=== PATIENT | female | born 1950 | race Caucasian/White ===

== ENCOUNTER 2016-08-02 12:10 | Outpatient (CLI) ==
[2014-01-27 13:03] VITALS: BMI 32.1
--- NOTE | 2016-08-02 12:56 | DI ---
EXAM: Chest two view, frontal and lateral views. HISTORY: Cough, wheezing. COMPARISON: 10/31/2013. FINDINGS: The heart size is normal. There is no pulmonary vascular congestion. The lungs are declan r. No pleural effusion or pneumothorax is seen. No acute osseous abnormality identified. Since prior study, there has been no significant interval change. IMPRESSION: No acute cardiopulmonary process.
== END 2016-08-02 12:11 | disposition home or self-care (01) ==
LOC: RAD 12:10
PROVIDERS: ATTEND Family Medicine
DX: J41.0 Simple chronic bronchitis (principal)

== ENCOUNTER 2017-03-22 14:07 | Outpatient (CLI) ==
[2014-01-27 13:03] VITALS: BMI 32.1
--- NOTE | 2017-03-24 04:12 | MRI ---
MRI of the lumbar spine HISTORY: Acute low back pain without sciatica. COMPARISON: 07/16/2013 PROCEDURE: Multiplanar, multisequence MRI protocol including sagittal T1-weighted, sagittal T2-weigh joyce, sagittal inversion recovery, coronal T2-weighted, axial T1-weighted and axial T2-weighted sequen avila. FINDINGS: There are five non-rib bearing lumbar vertebra. Vertebral alignment demonstrate straighten ing of normal lordosis. Vertebral body height is well maintained. Marrow signal is heterogeneous co mpatible with fatty infiltration associated with age. Note is again made of intraosseous hemangiomas in T12 and L1. The intervertebral discs demonstrate evidence of desiccation at L1-2 and L2-3 with a dditional moderate disc space narrowing at L1-2 and L2-3 and mild disc space narrowing at L3-4, L4-5 and L5-S1 as observed previously. There is evidence of large anterolateral osteophytes at L1-2 and s mall to moderate anterolateral osteophytes at L2-3 and small anterolateral osteophytes at L3-4. Ther e are chronic small Schmorl's nodes from T10-L4. The conus medullaris appears normal in position and configuration and signal. The caliber of the spinal canal is intrinsically within normal limits. N ote is made of prominent epidural fat narrowing the thecal sac at the L5-S1 level and in the sacral c anal. The prevertebral and paraspinous soft tissues appear generally stable when compared to the prio r examination. Segmental analysis: T12-L1: There is no significant disc bulge at this level. The spinal canal is not significantly narr owed. The subarticular spaces and lateral recesses are not significantly narrowed. The neural foramin a are not stenosed. The conus terminates just below this level. L1-L2: There is a small disc bulge at this level. There is modest triangulation of the canal without significant associated stenosis. The subarticular spaces and lateral recesses are not significantly narrowed. There is mild bilateral foraminal stenosis due to facet arthropathy and disc intrusion. L2-L3: There is a modest broad based disc bulge at this level. The combination of disc, facet hypert rophy thickening of the ligamenta flava and dorsal epidural lipomatosis reduces the AP diameter of th e thecal sac to about 7.5 mm. The subarticular spaces and lateral recesses are not significantly narr owed. There is mild right and moderate left foraminal stenosis due to facet arthropathy and disc intr usion. L3-L4: There is a modest broad based disc bulge impressing the ventral thecal sac at this level. The re is modest triangulation of the canal with reduction of the AP diameter of the thecal sac to about 9.5 mm by a combination of disc, facet hypertrophy, thickening of the ligamenta flava and dorsal epid ural lipomatosis. The subarticular spaces and lateral recesses are not significantly narrowed. There is mild bilateral foraminal stenosis due to facet arthropathy and disc intrusion. L4-L5: There is a modest broad based disc bulge impressing the ventral thecal sac at this level. The re is modest narrowing of the thecal sac to about 9.5 mm by a combination of disc, facet hypertrophy and thickening ligamenta flava. The subarticular spaces and lateral recesses are not significantly na rrowed. There is minimal bilateral foraminal stenosis due to facet arthropathy and disc intrusion. L5-S1: There is a minimal posterior disc bulge with midline annular fissure and protrusion at this le heriberto. There is no impression of the thecal sac. The thecal sac is narrowed by abundant epidural fat. The subarticular spaces and lateral recesses are not significantly narrowed. The neural foramina are not stenosed. IMPRESSION: 1. The current examination demonstrates largely stable findings when compared to the patient's prior examination. 2. There is straightening of normal lordosis. Vertebral body height is well maintained. Marrow signa l is heterogeneous. Note is made of intraosseous hemangiomas in T12 and L1. There is evidence of mo dest multilevel degenerative disc disease described in detail in the report. 3. There is triangulation of the canal without stenosis at L1-2, mild stenosis at L2-3, and triangula tion of the canal with mild stenosis at L4-5 consistent with prior exam. The thecal sac is narrowed by spinal lipomatosis at L5-S1. 4. There is mild bilateral foraminal stenosis at L1-2, mild right and moderate left foraminal stenosi s at L2-3, mild bilateral foraminal stenosis at L3-4 and minimal bilateral foraminal stenosis at L4-5 , details provided in the report at the individual levels.
== END 2017-03-22 14:08 | disposition home or self-care (01) ==
LOC: RAD 14:07
PROVIDERS: ATTEND Family Medicine
DX: M54.5 Low back pain (principal); Z85.9 Personal history of malignant neoplasm, unspecified

== ENCOUNTER 2017-11-02 09:04 | Outpatient (CLI) ==
[2014-01-27 13:03] VITALS: BMI 32.1
== END 2017-11-02 09:05 | disposition home or self-care (01) ==
LOC: LAB 09:04
PROVIDERS: ATTEND Family Medicine
DX: R31.9 Hematuria, unspecified (principal)
CPT/HCPCS: 81001; 87086; 87186

== ENCOUNTER 2018-07-14 19:17 | Emergency (ER) ==
[2018-07-14 19:21] VITALS: BP 156/67; TEMP 98.3; BMI 31.1
--- NOTE | 2018-07-14 20:07 | DI ---
EXAM: Three views of the right elbow HISTORY: Fall with pain. COMPARISON: None FINDINGS: There is no cortical irregularity or displaced fracture. The radial head and the capitellu m articulate normally. There is no abnormal periosteal reaction. There are no displaced fat pads. There is soft tissue swelling overlying the olecranon and dorsal aspect of the proximal forearm. IMPRESSION: Soft tissue swelling of the right elbow with no displaced fracture.
--- NOTE | 2018-07-14 20:23 | ED.PDOC ---
General ED Provider: Dr. URI STEELE-ER Chief Complaint: Fall Stated Complaint: my elbow is swollen Time Seen by Physician: 19:20 Mode of Arrival: Walk-In Information Source: Patient Exam Limitations: No limitations Primary Care Provider: URI STEELE Nursing and Triage Documentation Reviewed and Agree: Yes Does patient meet sepsis criteria?: No System Inflammatory Response Syndrome: Not Applicable Sepsis Protocol: For patient's 13 years and over: Temp is 96.8 and below OR 101 and greater Pulse >90 BPM Resp >20/minute Acutely Altered Mental Status Are patient's symptoms suggestive of a new infection, such as: -Pneumonia -Skin, Soft Tissue -Endocarditis -UTI -Bone, Joint Infection -Implantable Device -Acute Abdominal Infection -Wound Infection -Meningitis -Blood Stream Catheter Infection -Unknown Musculoskeletal Complaint Exam - Elbow Pain Complaint/Exam Mechanism of Injury: Reports: Trauma Symptoms Are: Still present Onset of Pain: Reports: Immediate Initial Severity: Mild Current Severity: Mild Location: Reports: Discrete Character: Reports: Dull, Aching Aggravating: Reports: Movement, Twisting, Pulling Associated Signs and Symptoms: Reports: Swelling, Redness Elbow Findings: Present: Swelling, Erythema, Warmth Limited Range of Motion: Present: Flexion, Extension Differential Diagnoses: Cellulitis, Bursitis Review of Systems - Review Of Systems Constitutional: Reports: No symptoms Eyes: Reports: No symptoms Ears, Nose, Mouth, Throat: Reports: No symptoms Respiratory: Reports: No symptoms Cardiac: Reports: No symptoms GI: Reports: No symptoms : Reports: No symptoms Musculoskeletal: Reports: Joint pain, Joint swelling Skin: Reports: No symptoms Neurological: Reports: No symptoms Endocrine: Reports: No symptoms Hematologic/Lymphatic: Reports: No symptoms All Other Systems: Reviewed and Negative Past Medical History - Past Medical History Previously Healthy: No Endocrine: Reports: Unknown Cardiovascular: Reports: Unknown Respiratory: Reports: Unknown Hematological: Reports: Unknown Gastrointestinal: Reports: Unknown Genitourinary: Reports: Unknown Neuro/Psych: Reports: Unknown Musculoskeletal: Reports: Unknown Cancer: Reports: Unknown Last Menstrual Period: N/A - Surgical History General Surgical History: Reports: Unknown - Family History Family History: Reports: Unknown - Social History Smoking Status: Heavy tobacco smoker, Current every day smoker Hx Substance Use: No Alcohol Screening: None Physical Exam - Physical Exam Appearance: Well-appearing, No pain distress, Well-nourished Eyes: KATIE, EOMI, Conjunctiva clear ENT: Ears normal, Nose normal, Oropharynx normal Neck: Supple Respiratory: Airway patent, Breath sounds clear, Breath sounds equal, Respirations nonlabored Cardiovascular: RRR, Pulses normal, No rub, No murmur GI/: Soft, Nontender, No masses, Bowel sounds normal, No Organomegaly Musculoskeletal: Normal strength, ROM intact, No edema, No calf tenderness Skin: Warm, Dry, Normal color Neurological: Sensation intact, Motor intact, Reflexes intact, Cranial nerves intact, Alert, Oriented Psychiatric: Affect appropriate, Mood appropriate Interpretation - Radiology Interpretation Radiology Interpretation By: Radiologist Radiology Results: Negative Critical Care Note - Critical Care Note Total Time (mins): 0 Course - Course Orders, Labs, Meds: Orders Category Date Time Status ELBOW, RIGHT MIN 3 VIEWS Stat RADS 07/14/18 19:20 Completed Vital Signs: Temp Pulse Resp BP Pulse Ox 07/14/18 19:18 98.3 F 93 H 18 156/67 H 95 Departure - Departure Time of Disposition: 20:23 Disposition: HOME SELF-CARE Discharge Problem: Olecranon bursitis Qualifiers: Laterality: right Qualified Code(s): M70.21 - Olecranon bursitis, right elbow Instructions: Elbow Bursitis (ED) Condition: Good Pt referred to PMD for follow-up: Yes IPMP verified?: No Additional Instructions: clindamycin 300mg qid x 7days--heat ---recheck this week if worsens Allergies/Adverse Reactions: Allergies Penicillins Adverse Reaction (Verified 07/14/18 19:20) Home Medications: Ambulatory Orders Esomeprazole Magnesium [Nexium] 40 tab PO DAILY 10/31/13 Levothyroxine Sodium [Synthroid] 100 mcg PO DAILY 10/31/13 Disposition Discussed With: Patient, Family
== END 2018-07-14 20:29 | disposition home or self-care (01) ==
LOC: ED 19:17
DX: M70.21 Olecranon bursitis, right elbow (principal); W19.XXXA Unspecified fall, initial encounter; F17.210 Nicotine dependence, cigarettes, uncomplicated
CPT/HCPCS: 99283

== ENCOUNTER 2021-11-19 22:33 | Observation (INO) ==
[2021-11-19] MEDS ORDERED: SODIUM CHLORIDE 1,000 ML IV STA (22:53)
--- NOTE | 2021-11-19 23:00 | ED.PDOC ---
General ED Provider: Dr. SUNNY CLEARY Chief Complaint: Shortness of Air Stated Complaint: Patient is a 71 year old female Smoker of 2 ppd for many years who is brought by Daughter with complaints of shortness of breath and slurred speech that started 30 min prior to arrival. Time Seen by Provider: 11/19/21 22:40 Mode of Arrival: Walk-In Information Source: Patient and Family Primary Care Provider: URI STEELE Nursing and Triage Documentation Reviewed and Agree: Yes Does patient meet sepsis criteria?: No System Inflammatory Response Syndrome: Not Applicable Sepsis Protocol: For patient's 13 years and over: Temp is 96.8 and below OR 101 and greater Pulse >90 BPM Resp >20/minute Acutely Altered Mental Status Are patient's symptoms suggestive of a new infection, such as: -Pneumonia -Skin, Soft Tissue -Endocarditis -UTI -Bone, Joint Infection -Implantable Device -Acute Abdominal Infection -Wound Infection -Meningitis -Blood Stream Catheter Infection -Unknown Review of Systems Review Of Systems Constitutional: Reports No symptoms Eyes: Reports No symptoms Ears, Nose, Mouth, Throat: Reports No symptoms Respiratory: Reports Short of air Cardiac: Reports No symptoms GI: Reports No symptoms : Reports No symptoms Musculoskeletal: Reports No symptoms Skin: Reports No symptoms Neurological: Reports Anxiety, Headache and Other (Slurring of some words. ); Denies Numbness, Tingling or Weakness All Other Systems: Reviewed and Negative [facility] Medical History (Updated 11/20/21 @ 06:50 by SUNNY CLEARY MD) Bladder cancer Chronic GERD Hypothyroid Family History (Updated 11/20/21 @ 00:49 by GABBY MARIO, HILDA) Mother Diabetes FATHER Heart abnormality SISTER Cancer BROTHER Cancer Social History Smoking and tobacco status: Current every day smoker Surgical History History of urostomy Female Reproductive History Menstrual Hx Hysterectomy: Yes Physical Exam Physical Exam Appearance: Reports Ill-appearing Ill-appearing: Mild Pain Distress: None Eyes: Reports KATIE, EOMI and Conjunctiva clear ENT: Reports Nose normal and Oropharynx normal Neck: Supple (no Carotid Bruits ) Respiratory: Reports Breath sounds diminished Cardiovascular: Reports RRR, Pulses normal and No rub GI/: Reports Soft, Nontender, No masses and Other (Urostomy on the right mid quadrant, stoma appears healthy.) Musculoskeletal: Reports Normal strength Skin: Reports Warm and Dry Neurological: Reports Motor intact Psychiatric: Reports Anxious Interpretation Radiology Interpretation Radiology Interpretation By: Radiologist Radiology Results: Negative Exam Interpreted: CT Scan Automation Machine Builder Rate: Panda Rhythm: Sinus Ectopy: None EKG Interpretation Time of EKG #1: 22:45 Rate: Panda Rhythm: Sinus Ectopy: None [place]: NL ST Segment: Normal 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 Re-Evaluation Re-Evaluation Time of Re-Evaluation: 00:18 Status: Improved (Slurring of speech resolved. ) Vital Signs Stable: Yes Pain Level: Headache gone Physician Notification Case Discussed Physician Notified: Dr Payne Time of Notification: 00:10 (Ok to admit to hospitalist) Critical Care Note Critical Care Note Total Critical Care Time (mins): 0 Course Course Hematology/Chemistry: 11/20/21 05:13 11/20/21 05:13 Orders, Labs, Meds: Lab Review 11/19/21 11/19/21 11/19/21 23:05 23:10 23:10 WBC 7.53 RBC 4.02 L Hgb 11.5 L Hct 36.0 L MCV 89.6 MCH 28.6 MCHC 31.9 RDW Coeff of Drew 14.2 Plt Count 285 Immature Gran % (Auto) 0.3 Neut % (Auto) 49.7 Lymph % (Auto) 35.2 [place] % (Auto) 9.7 Eos % (Auto) 4.0 Baso % (Auto) 1.1 Neut # (Auto) 3.8 Lymph # (Auto) 2.7 [place] # (Auto) 0.7 Eos # (Auto) 0.3 Baso # (Auto) 0.1 Immature Gran # (Auto) 0.0 PT 9.1 L INR 0.87 APTT 30.5 Sodium Potassium Chloride Carbon Dioxide Anion Gap BUN Creatinine Estimated GFR (MDRD) BUN/Creatinine Ratio Glucose Calcium Total Bilirubin AST ALT Alkaline Phosphatase Total Protein Albumin Globulin Albumin/Globulin Ratio Urine Color Yellow Urine Clarity Clear Urine pH 7.0 Ur Specific [place] 1.015 Urine Protein 1+ H Urine Glucose (UA) Negative Urine Ketones Negative Urine Blood 1+ H Urine Nitrite Positive H Urine Bilirubin Negative Urine Urobilinogen 0.2 Ur Leukocyte Esterase 2+ H Urine Microscopic RBC 2-5 Urine Microscopic WBC 10-20 Ur Squamous Epith Cells 0-2 Amorphous Sediment 1+ Urine Bacteria 3+ SARS CoV-2 RNA Rapid DORINA 11/19/21 11/19/21 23:10 Unknown WBC RBC Hgb Hct MCV MCH MCHC RDW Coeff of Drew Plt Count Immature Gran % (Auto) Neut % (Auto) Lymph % (Auto) [place] % (Auto) Eos % (Auto) Baso % (Auto) Neut # (Auto) Lymph # (Auto) [place] # (Auto) Eos # (Auto) Baso # (Auto) Immature Gran # (Auto) PT INR APTT Sodium 138.9 Potassium 3.93 Chloride 107.5 H Carbon Dioxide 24.3 Anion Gap 11.03 BUN 18.1 H Creatinine 1.90 H Estimated GFR (MDRD) 26.00 BUN/Creatinine Ratio 9.52 Glucose 109.7 H Calcium 8.76 Total Bilirubin 0.18 L AST 19.9 ALT 10.0 Alkaline Phosphatase 76.5 Total Protein 7.09 Albumin 3.72 Globulin 3.37 Albumin/Globulin Ratio 1.10 Urine Color Urine Clarity Urine pH Ur Specific [place] Urine Protein Urine Glucose (UA) Urine Ketones Urine Blood Urine Nitrite Urine Bilirubin Urine Urobilinogen Ur Leukocyte Esterase Urine Microscopic RBC Urine Microscopic WBC Ur Squamous Epith Cells Amorphous Sediment Urine Bacteria SARS CoV-2 RNA Rapid DORINA Negative Orders Category Date Time Status ADMIT PATIENT INPATIENT .TO [facility] (MONITORED BED) ADMISSION 11/20/21 00:06 Active ECHOCARDIOGRAM 2D-M MODE Routine CARDIO 11/20/21 00:06 Ordered EKG-(ED ONLY) Stat CARDIO 11/19/21 22:53 Completed ACTIVITY .Early Mobilization for VTE Prevention CARE 11/20/21 00:07 Active INTAKE & OUTPUT Q8HR CARE 11/20/21 00:06 Active TELEMETRY MONITORING TELE CARE 11/20/21 00:06 Active VITAL SIGNS Q4HR CARE 11/20/21 00:07 Active REGULAR DIET DIETARY 11/20/21 Breakfast Ordered ED ACCUCHECK ASSESSMENT .ONCE EMERGENCY 11/19/21 22:53 Active ED IV/MEDIPORT/POWERPORT .ONCE EMERGENCY 11/19/21 22:53 Active CBC W/ AUTO DIFF DAILY@0600 LAB 11/20/21 05:13 Completed CBC W/ AUTO DIFF DAILY@0600 LAB 11/21/21 06:00 Ordered CBC W/ AUTO DIFF Stat LAB 11/19/21 23:10 Completed COMPREHENSIVE METABOLIC PANEL DAILY@0600 LAB 11/20/21 05:13 Completed COMPREHENSIVE METABOLIC PANEL DAILY@0600 LAB 11/21/21 06:00 Ordered COMPREHENSIVE METABOLIC PANEL Stat LAB 11/19/21 23:10 Completed PARTIAL THROMBOPLASTIN TIME Stat LAB 11/19/21 23:10 Completed PT WITH INR Stat LAB 11/19/21 23:10 Completed SARS COV-2 RNA RAPID DORINA Stat LAB 11/19/21 Completed UA [URINALYSIS C & S IF INDICATED] Stat LAB 11/19/21 23:05 Completed URINE CULTURE Stat LAB 11/19/21 23:05 Received 0.9 % Sodium Chloride [Saline Flush] MEDS 11/19/21 22:53 Active 1 syr IVF PRN PRN Acetaminophen [Tylenol] MEDS 11/20/21 00:06 Active 650 mg PO Q4H PRN Ceftriaxone/D5w 1 gm Premix [Rocephin 1 gm/50 ml D5w] MEDS 11/20/21 21:00 Active 1 gm in 50 ml IV BEDTIME Ceftriaxone/D5w 1 gm Premix [Rocephin 1 gm/50 ml D5w] MEDS 11/19/21 23:47 Discontinued 1 gm in 50 ml IV ONCE Enoxaparin Sodium [Lovenox] MEDS 11/20/21 09:00 Active 30 mg SUBCUT DAILY Morphine Sulfate [Morphine 2 mg/ml Syringe] MEDS 11/19/21 23:20 Discontinued 2 mg IVP ONCE ONE Morphine Sulfate [Morphine 2 mg/ml Syringe] MEDS 11/20/21 00:06 Active 2 mg IVP Q4H PRN Nicotine 21 mg [Nicoderm 21 mg] MEDS 11/20/21 09:00 Active 1 patch TD DAILY Ondansetron HCl/Pf [Zofran 4 mg/2 ml] MEDS 11/19/21 23:20 Discontinued 4 mg IVP ONCE STA Ondansetron HCl/Pf [Zofran 4 mg/2 ml] MEDS 11/20/21 00:06 Active 4 mg IVP Q6H PRN Oxycodone-Acetaminophen 5-325 [Percocet 5-325] MEDS 11/20/21 00:06 Active 1 tab PO Q6H PRN Sodium Chloride 0.9% [Sodium Chloride] 1,000 ml MEDS 11/20/21 00:30 Active IV 125 mls/hr Sodium Chloride 0.9% [Sodium Chloride] 1,000 ml MEDS 11/19/21 22:53 Active IV 30 mls/hr RESUSCITATION STATUS Routine OTHERS 11/20/21 00:[address] CHEST W/O CONTRAST Stat RADS 11/19/21 22:[address] HEAD W/O CONTRAST Stat RADS 11/19/21 22:40 Completed U/S DOPPLER CAROTID Stat RADS 11/20/21 00:06 Ordered Medications Generic Name Dose Route Start Last Admin Trade Name Vanita PRN Reason Stop Dose Admin Acetaminophen 650 mg 11/20/21 00:06 Acetaminophen 325 Mg Tablet PO Q4H PRN Fever and Mild Pain Enoxaparin Sodium 30 mg 11/20/21 09:00 Enoxaparin Sodium 30 Mg/0.3 Ml Syr SUBCUT DAILY [facility]1983 Sodium Chloride 1,000 mls @ 30 mls/hr 11/19/21 22:53 11/19/21 23:06 Sodium Chloride IV 11/21/21 08:12 30 mls/hr .[id number] STA Administration Sodium Chloride 1,000 mls @ 125 mls/hr 11/20/21 00:30 Sodium Chloride IV .Q8H JESSIKA CEFTRIAXONE/D5W 1 GM PREMIX 1 gm in 50 mls @ 75 mls/hr 11/20/21 21:00 Rocephin 1 Gm/50 Ml D5w IV 11/23/21 20:59 BEDTIME JESSIKA Levothyroxine Sodium 100 mcg 11/20/21 06:30 11/20/21 05:43 Levothyroxine Sodium 100 Mcg Tablet PO 100 mcg 0630 JESSIKA Administration Morphine Sulfate 2 mg 11/20/21 00:06 11/20/21 05:56 Morphine Sulfate 2 Mg/Ml Syringe IVP 2 mg Q4H PRN Administration severe pain Nicotine 1 patch 11/20/21 09:00 Nicotine 21 Mg Patch.Td24 TD DAILY JESSIKA Ondansetron HCl 4 mg 11/20/21 00:06 Ondansetron Hcl/Pf 4 Mg/2 Ml Sdv IVP Q6H PRN Nausea / Vomiting Oxycodone/Acetaminophen 1 tab 11/20/21 00:06 Oxycodone/Acetaminophen 5/325 Mg Tablet PO Q6H PRN moderate pain Pantoprazole Sodium 40 mg 11/20/21 09:00 Pantoprazole Sodium 40 Mg Vial IVP DAILY JESSIKA Sodium Chloride 1 syr 11/19/21 22:53 0.9% Sodium Chloride 10 Ml Disp.Syrin IVF PRN PRN To flush IV Discontinued Medications Generic Name Dose Route Start Last Admin Trade Name Vanita PRN Reason Stop Dose Admin Aspirin 324 mg 11/20/21 00:11 11/20/21 01:15 Aspirin 81 Mg Tab.Chew PO 11/20/21 00:12 Not Given ONCE STA Aspirin 81 mg 11/20/21 00:11 11/20/21 01:15 Aspirin 81 Mg Tab.Chew PO 11/20/21 00:12 Not Given ONCE ONE CEFTRIAXONE/D5W 1 GM PREMIX 1 gm in 50 mls @ 75 mls/hr 11/19/21 23:47 11/19/21 23:58 Rocephin 1 Gm/50 Ml D5w IV 11/20/21 00:26 75 mls/hr ONCE STA Administration Morphine Sulfate 2 mg 11/19/21 23:20 11/19/21 23:26 Morphine Sulfate 2 Mg/Ml Syringe IVP 11/19/21 23:21 2 mg ONCE ONE Administration Ondansetron HCl 4 mg 11/19/21 23:20 11/19/21 23:26 Ondansetron Hcl/Pf 4 Mg/2 Ml Sdv IVP 11/19/21 23:21 4 mg ONCE STA Administration Vital Signs: Temp Pulse Resp BP Pulse Ox 11/19/21 22:44 98.3 F 61 18 146/67 H 99 Discharge Plan Discharge Patient Disposition: ADMITTED INPATIENT Discharge Problem: Urinary tract infection, TIA (transient ischemic attack) Did you review [place] [employer]?: No ED Provider: SUNNY CLEARY Condition: Fair Physician Progress Note: [] NIH Stroke Scale 1a. Level of Consciousness: 0=Alert and keenly responsive 1b. Level of Consciousness Questions: 0=Answers correctly to two questions 1c. Level of Consciousness Commands: 0=Performs two tasks correctly 2. Best Gaze: 0=Normal 3. Visual: 0=No visual loss 4. Facial Palsy: 0=Normal 5a. Motor Left Arm: 0=No drift,arm holds 90 degrees for 10 sec., leg 30 degrees for 5 sec. 5b. Motor Right Arm: 0=No drift,arm holds 90 degrees for 10 sec., leg 30 degrees for 5 sec. 6a. Motor Left Le=No drift,arm holds 90 degrees for 10 sec., leg 30 degrees for 5 sec. 6b. Motor Right Le=No drift,arm holds 90 degrees for 10 sec., leg 30 degrees for 5 sec. 7. Limb Ataxia: 0=Absent 8. Sensory: 0=Normal 9. Best Language: 0=No aphasia 10. Dysarthria: 1=Mild to moderate, but can be understood 11. Extincion and Inattention: 0=Normal Stroke Scale Total: 1
[2021-11-19 23:15] LABS: BASOPHILS # (AUTO) 0.1 K/uL (0-0.2); BASOPHILS % (AUTO) 1.1 % (0.0-3.0); EOSINOPHILS # (AUTO) 0.3 K/ul (0.0-0.7); HEMOGLOBIN 11.5 g/dl (12.0-16.0); IMMATURE GRANULOCYTE % (AUTO) 0.3 % (0.0-5.0); LYMPHOCYTES # (AUTO) 2.7 K/uL (0.60-3.4); LYMPHOCYTES % (AUTO) 35.2 (10.0-50.0); MEAN CORPUSCULAR HEMOGLOBIN 28.6 pg (27.0-31.0); MEAN CORPUSCULAR HGB CONC 31.9 (31.8-35.4); MEAN CORPUSCULAR VOLUME 89.6 fl (81.0-99.0); MONOCYTES # (AUTO) 0.7 K/uL (0.4-2.0); MONOCYTES % (AUTO) 9.7 (0-10); NEUTROPHILS # (AUTO) 3.8 K/ul (2.0-6.9); NEUTROPHILS % (AUTO) 49.7 % (42.2-75.2); PLATELET COUNT 285 10^3/uL (140-440); RDW COEFFICIENT OF VARIATION 14.2 % (11.6-14.8); RED BLOOD COUNT 4.02 10^6/ul (4.20-5.40); WHITE BLOOD COUNT 7.53 K/ul (4.6-10.2)
--- NOTE | 2021-11-19 23:19 | CT ---
EXAM: CT brain without contrast HISTORY: Slurred speech TECHNIQUE: CT of the brain without intravenous contrast. FINDINGS: There is no acute hemorrhage midline shift or mass effect. No hydrocephalus or abnormal e xtra-axial fluid collection. Lies involutional atrophy, mild. Chronic microvascular change of the w kolby matter tracts, minimal. No acute large vessel territorial infarct is seen. The bony cranium ap pears normal. The visualized paranasal sinuses are clear. Soft tissues without significant abnormali ty. IMPRESSION: 1. Chronic changes as described. No acute intracranial abnormality is seen. All CT scans are performed using dose optimization techniques as appropriate to the performed exam an d include at least one of the following: Automated exposure control, adjustment of the mA and/or kV according t o size, and the use of iterative reconstruction technique.
[2021-11-19] MEDS ORDERED: ZOFRAN 4 MG/2 ML IVP STA (23:20)
[2021-11-19] MEDS ORDERED: MORPHINE 2 MG/ML SYRINGE IVP ONE (23:20)
[2021-11-19 23:27] LABS: ALBUMIN 3.72 g/dL (3.5-5.0); ALKALINE PHOSPHATASE 76.5 U/L (53-141); ASPARTATE AMINO TRANSFERASE 19.9 U/L (14-36); BILIRUBIN,TOTAL 0.18 mg/dL (0.2-1.3); BLOOD UREA NITROGEN 18.1 mg/dL (7-17); CALCIUM 8.76 mg/dL (8.4-10.2); CARBON DIOXIDE 24.3 mmol/L (22-30.0); CHLORIDE 107.5 mmol/L (98-107); CREATININE 1.9 mg/dL (0.60-1.30); GLUCOSE 109.7 mg/dL (74-106); POTASSIUM 3.93 mmol/L (3.5-5.1); SODIUM 138.9 mmol/L (134.5-145); TOTAL PROTEIN 7.09 g/dL (6.3-8.2)
--- NOTE | 2021-11-19 23:35 | CT ---
EXAM: CT of the chest without contrast History: Short of breath Comparison: Chest CT 04/29/2019 Technique: Multiplanar CT images through the thorax were obtained without the administration of IV c ontrast Findings: Heart is borderline enlarged. No pericardial effusion. Coronary calcifications. No thor acic aortic aneurysm. Stable mildly enlarged mediastinal lymph nodes. No axillary or hilar lymphade nopathy. No consolidation within the lungs. No pleural fluid and no pneumothorax. Scattered areas of subsegmental atelectasis. No suspicious lung masses or lung nodules. Within the visualized upper abdomen, no acute findings. No acute osseous abnormalities. Impression: 1. No acute intrathoracic process. 2. Borderline cardiomegaly and coronary artery disease All CT scans are performed using dose optimization techniques as appropriate to the performed exam an d include at least one of the following: Automated exposure control, adjustment of the mA and/or kV according t o size, and the use of iterative reconstruction technique.
[2021-11-19 23:36] LABS: BILIRUBIN,URINE Negative (NEGATIVE); CLARITY,URINE Clear (CLEAR); COLOR,URINE Yellow (YELLOW); GLUCOSE, URINE (UA) Negative (NEGATIVE); KETONES,URINE Negative (NEGATIVE); LEUKOCYTE ESTERASE ,URINE 2+ (NEGATIVE); NITRITE,URINE Positive (NEGATIVE); PROTEIN,URINE 1+ (NEGATIVE); URINE, BLOOD 1+ (NEGATIVE); UROBILINOGEN,URINE 0.2 (0.2)
[2021-11-19 23:37] LABS: PARTIAL THROMBOPLASTIN TIME 30.5 SEC (23.9-40.0); PROTHROMBIN TIME 9.1 SEC (9.3-11.0)
[2021-11-19 23:41] LABS: AMORPHOUS SEDIMENT,UR 1+ (NOT PRESENT); BACTERIA,URINE 3+ (NOT PRESENT); SQUAMOUS EPITHELIAL CELL,UR 0-2 (0-5)
[2021-11-19] MEDS ORDERED: ROCEPHIN 1 GM/50 ML D5W 1 GM/50 ML BAG IV STA (23:47)
[2021-11-20] MEDS ORDERED: ZOFRAN 4 MG/2 ML IVP PRN (00:06)
[2021-11-20] MEDS ORDERED: TYLENOL PO PRN (00:06)
[2021-11-20] MEDS ORDERED: PERCOCET 5-325 PO PRN (00:06)
[2021-11-20] MEDS ORDERED: MORPHINE 2 MG/ML SYRINGE IVP PRN (00:06)
[2021-11-20] MEDS ORDERED: ASPIRIN CHEWABLE PO ONE (00:11)
[2021-11-20] MEDS ORDERED: ASPIRIN CHEWABLE PO STA (00:11)
[2021-11-20 00:49] VITALS: BMI 27.6
[2021-11-20 05:34] LABS: BASOPHILS # (AUTO) 0.1 K/uL (0-0.2); BASOPHILS % (AUTO) 0.9 % (0.0-3.0); EOSINOPHILS # (AUTO) 0.3 K/ul (0.0-0.7); EOSINOPHILS % (AUTO) 3.7 % (0.0-7.0); HEMOGLOBIN 11.7 g/dl (12.0-16.0); IMMATURE GRANULOCYTE % (AUTO) 0.2 % (0.0-5.0); LYMPHOCYTES % (AUTO) 34.3 (10.0-50.0); MEAN CORPUSCULAR HEMOGLOBIN 28.5 pg (27.0-31.0); MEAN CORPUSCULAR HGB CONC 31.6 (31.8-35.4); MEAN CORPUSCULAR VOLUME 90.2 fl (81.0-99.0); MONOCYTES # (AUTO) 0.7 K/uL (0.4-2.0); MONOCYTES % (AUTO) 8.3 (0-10); NEUTROPHILS # (AUTO) 4.6 K/ul (2.0-6.9); NEUTROPHILS % (AUTO) 52.6 % (42.2-75.2); PLATELET COUNT 300 10^3/uL (140-440); RDW COEFFICIENT OF VARIATION 14.2 % (11.6-14.8); WHITE BLOOD COUNT 8.75 K/ul (4.6-10.2)
[2021-11-20 05:51] LABS: ALANINE AMINOTRANSFERASE 10.7 U/L (0-35); ALBUMIN 3.87 g/dL (3.5-5.0); ASPARTATE AMINO TRANSFERASE 21.1 U/L (14-36); BILIRUBIN,TOTAL 0.22 mg/dL (0.2-1.3); BLOOD UREA NITROGEN 17.3 mg/dL (7-17); CALCIUM 8.67 mg/dL (8.4-10.2); CHLORIDE 105.8 mmol/L (98-107); CREATININE 1.81 mg/dL (0.60-1.30); GLUCOSE 135.4 mg/dL (74-106); POTASSIUM 4.06 mmol/L (3.5-5.1); SODIUM 139.2 mmol/L (134.5-145); TOTAL PROTEIN 7.47 g/dL (6.3-8.2)
[2021-11-20] MEDS ORDERED: SYNTHROID PO SCH (06:30)
[2021-11-20] MEDS ORDERED: PROTONIX IV IVP SCH (09:00)
[2021-11-20] MEDS ORDERED: LOVENOX SUBCUT SCH (09:00)
[2021-11-20] MEDS ORDERED: NICODERM 21 MG TD SCH (09:00)
[2021-11-20] MEDS: SODIUM CHLORIDE 1,000 ML IV SCH ×2 (09:01→15:03)
--- NOTE | 2021-11-20 11:22 | US ---
EXAM: Carotid duplex ultrasound. HISTORY: Transient ischemic attack. Speech difficulty, visual impairment, dizziness/lightheadedness , weakness/numbness, memory loss. COMPARISON: None. FINDINGS: Evaluation of the right and left carotid and vertebral arteries was performed using milian scale, color doppler, and spectral doppler. Right cervical carotid: Mild to moderate atherosclerotic plaque in the right internal carotid artery. Peak systolic velocity right ICA 80.1cm/s. Velocity right CCA 69cm/s. Velocity ratio right ICA:CCA 1.2. Left cervical carotid: Mild to moderate atherosclerotic plaque in the left internal carotid artery. Peak systolic velocity left ICA 61cm/s. Velocity left CCA 128.8cm/s. Velocity ratio left ICA:CCA 0.5 . Vertebral arteries: Normal, antegrade flow. IMPRESSION: No evidence of hemodynamically significant carotid stenosis. Mild to moderate bilateral carotid atherosclerosis. Normal flow in the right and left vertebral arteries.
--- NOTE | 2021-11-20 12:16 | ECHO2D ---
Date of Exam: 11/20/2021 Ordering Physician: DR. URI STEELE/ HOSPITALIST Room #: [id number] Reason for Echo: TIA M-Mode Normal Adult Results LV Dimensions Normal Adult Results AoV Opening excursions >1.6 >1.6 LVEDD-base- 3.5-5.8 4.2 Ao root dimensions 2.0-3.7 3.1 LVESD-base- 3.1-4.6 L. Atrium dimensions 1.9-3.8 4.3 Post. Wall thickness 0.8-1.1 1.1 IV septum (thickness) 0.7-1.2 1.0 Post. Wall excursion 0.72-1.3 NORMAL Septal motion NORMAL Systolic motion R. Ventricular cavity 1.5-2.0 NORMAL LVEF 60% 73% Paradoxical septal wall motion NORMAL 2-D : ENLARGED LEFT ATRIAL CAVITY--MILD PERICARDIAL EFFUSION, NORMAL VALVES, NORMAL LEFT VENTRICLE SIZE AND CONTRACTILITY--NO THROMBUS M-MODE: MV: NORMAL AV: NORMAL TV: NORMAL PV: CHAMBER SIZE: ENLARGED LEFT ATRIAL CAVITY WALL MOTION: NORMAL PERICARDIUM: MILD PERICARDIAL EFFUSION INTERPRETATION: 1. ENLARGED LEFT ATRIAL CAVITY (MILD) 2. MILD / SMALL PERICARDIAL EFFUSION 3. NORMAL VALVES 4. NORMAL LEFT VENTRICLE SIZE AND CONTRACTILITY [facility] DR[facility]
[2021-11-20 14:14] VITALS: BP 119/65; TEMP 97.3
--- NOTE | 2021-11-20 17:19 | PCM.DC ---
Final Diagnosis: TIA - resolved. UTI with indwelling catheter. Nicotine Addiction. Date of Admit - 11/19/2021 Date of Discharge - 11/20/2021 Physical Exam Appearance: Well-appearing Ill-appearing: None Pain Distress: None Eyes: KATIE ENT: Oropharynx normal Neck: Supple Respiratory: Airway patent and Breath sounds clear Cardiovascular: RRR and Pulses normal GI/: Soft, Nontender and Other (urostomy site functioning) Musculoskeletal: Normal strength and ROM intact Skin: Warm and Dry Neurological: Sensation intact, Motor intact and Alert Psychiatric: Affect appropriate and Mood appropriate (1) TIA (transient ischemic attack): Status: Acute Code(s): G45.9 - Transient cerebral ischemic attack, unspecified SNOMED Code(s): 337560099 (2) Urinary tract infection: Status: Acute Code(s): N39.0 - Urinary tract infection, site not specified SNOMED Code(s): 54512017 Qualifiers: Hematuria presence: without hematuria Urinary tract infection type: acute cystitis Qualified Code(s): N30.00 - Acute cystitis without hematuria Reason for Hospitalization: Admitted with slurred speech and negative head CT, Diagnosis - TIA. Prognosis/Condition at Discharge: Fair, stable. Medications at Discharge: Ambulatory Orders Medication Instructions Recorded esomeprazole magnesium 40 mg 40 tab PO DAILY 10/31/13 capsule,delayed release (Nexium) levothyroxine 100 mcg tablet 100 mcg PO DAILY 10/31/13 (Synthroid) acetaminophen 325 mg capsule 650 mg PO PRN PRN Pain 11/19/21 (Tylenol) ASA 81 mg daily. Plavix 75 mg daily. Macrobid 100 mg bid for 10 d. Lab/Diagnostics: Laboratory Results - last 24 hr 11/19/21 11/19/21 11/19/21 23:05 23:10 23:10 WBC 7.53 RBC 4.02 L Hgb 11.5 L Hct 36.0 L MCV 89.6 MCH 28.6 MCHC 31.9 RDW Coeff of Drew 14.2 Plt Count 285 Immature Gran % (Auto) 0.3 Neut % (Auto) 49.7 Lymph % (Auto) 35.2 [place] % (Auto) 9.7 Eos % (Auto) 4.0 Baso % (Auto) 1.1 Neut # (Auto) 3.8 Lymph # (Auto) 2.7 [place] # (Auto) 0.7 Eos # (Auto) 0.3 Baso # (Auto) 0.1 Immature Gran # (Auto) 0.0 PT 9.1 L INR 0.87 APTT 30.5 Sodium Potassium Chloride Carbon Dioxide Anion Gap BUN Creatinine Estimated GFR (MDRD) BUN/Creatinine Ratio Glucose Calcium Total Bilirubin AST ALT Alkaline Phosphatase Total Protein Albumin Globulin Albumin/Globulin Ratio Urine Color Yellow Urine Clarity Clear Urine pH 7.0 Ur Specific [place] 1.015 Urine Protein 1+ H Urine Glucose (UA) Negative Urine Ketones Negative Urine Blood 1+ H Urine Nitrite Positive H Urine Bilirubin Negative Urine Urobilinogen 0.2 Ur Leukocyte Esterase 2+ H Urine Microscopic RBC 2-5 Urine Microscopic WBC 10-20 Ur Squamous Epith Cells 0-2 Amorphous Sediment 1+ Urine Bacteria 3+ SARS CoV-2 RNA Rapid DORINA 11/19/21 11/19/21 11/20/21 23:10 Unknown 05:13 WBC 8.75 RBC 4.10 L Hgb 11.7 L Hct 37.0 MCV 90.2 MCH 28.5 MCHC 31.6 L RDW Coeff of [place] 14.2 Plt Count 300 Immature Gran % (Auto) 0.2 Neut % (Auto) 52.6 Lymph % (Auto) 34.3 [place] % (Auto) 8.3 Eos % (Auto) 3.7 Baso % (Auto) 0.9 Neut # (Auto) 4.6 Lymph # (Auto) 3.0 [place] # (Auto) 0.7 Eos # (Auto) 0.3 Baso # (Auto) 0.1 Immature Gran # (Auto) 0.0 PT INR APTT Sodium 138.9 Potassium 3.93 Chloride 107.5 H Carbon Dioxide 24.3 Anion Gap 11.03 BUN 18.1 H Creatinine 1.90 H Estimated GFR (MDRD) 26.00 BUN/Creatinine Ratio 9.52 Glucose 109.7 H Calcium 8.76 Total Bilirubin 0.18 L AST 19.9 ALT 10.0 Alkaline Phosphatase 76.5 Total Protein 7.09 Albumin 3.72 Globulin 3.37 Albumin/Globulin Ratio 1.10 Urine Color Urine Clarity Urine pH Ur Specific [place] Urine Protein Urine Glucose (UA) Urine Ketones Urine Blood Urine Nitrite Urine Bilirubin Urine Urobilinogen Ur Leukocyte Esterase Urine Microscopic RBC Urine Microscopic WBC Ur Squamous Epith Cells Amorphous Sediment Urine Bacteria SARS CoV-2 RNA Rapid DORINA Negative 11/20/21 05:13 WBC RBC Hgb Hct MCV MCH MCHC RDW Coeff of [place] Plt Count Immature Gran % (Auto) Neut % (Auto) Lymph % (Auto) [place] % (Auto) Eos % (Auto) Baso % (Auto) Neut # (Auto) Lymph # (Auto) [place] # (Auto) Eos # (Auto) Baso # (Auto) Immature Gran # (Auto) PT INR APTT Sodium 139.2 Potassium 4.06 Chloride 105.8 Carbon Dioxide 25.0 Anion Gap 12.46 BUN 17.3 H Creatinine 1.81 H Estimated GFR (MDRD) 27.00 BUN/Creatinine Ratio 9.55 Glucose 135.4 H Calcium 8.67 Total Bilirubin 0.22 AST 21.1 ALT 10.7 Alkaline Phosphatase 81.0 Total Protein 7.47 Albumin 3.87 Globulin 3.60 Albumin/Globulin Ratio 1.07 Urine Color Urine Clarity Urine pH Ur Specific [place] Urine Protein Urine Glucose (UA) Urine Ketones Urine Blood Urine Nitrite Urine Bilirubin Urine Urobilinogen Ur Leukocyte Esterase Urine Microscopic RBC Urine Microscopic WBC Ur Squamous Epith Cells Amorphous Sediment Urine Bacteria SARS CoV-2 RNA Rapid DORINA EXAM: CT brain without contrast HISTORY: Slurred speech TECHNIQUE: CT of the brain without intravenous contrast. FINDINGS: There is no acute hemorrhage midline shift or mass effect. No hydrocephalus or abnormal extra-axial fluid collection. Lies involutional atrophy, mild. Chronic microvascular change of the white matter tracts, minim al. No acute large vessel territorial infarct is seen. The bony cranium appears normal. The visualized paranasal sinuses are clear. Soft tissues without significant abnormality. IMPRESSION: 1. Chronic changes as described. No acute intracranial abnormality is seen. HISTORY: Transient ischemic attack. Speech difficulty, visual impairment, dizziness/lightheadedness, weakness/numbness, memory loss. COMPARISON: None. Carotid dopplers: FINDINGS: Evaluation of the right and left carotid and vertebral arteries was performed using milian scale, color doppler, and spectral doppler. Right cervical carotid: Mild to moderate atherosclerotic plaque in the right internal carotid artery. Peak systolic velocity right ICA 80.1cm/s. Velocity right CCA 69cm/s. Velocity ratio right ICA:CCA 1.2. Left cervical carotid: Mild to moderate atherosclerotic plaque in the left internal carotid artery. Peak systolic velocity left ICA 61cm/s. Velocity left CCA 128.8cm/s. Velocity ratio left ICA:CCA 0.5. Vertebral arteries: Normal, antegrade flow. IMPRESSION: No evidence of hemodynamically significant carotid stenosis. Mild to moderate bilateral carotid atherosclerosis. Normal flow in the right and left vertebral arteries. Echocardiogram 2-D :ENLARGED LEFT ATRIAL CAVITY--MILD PERICARDIAL EFFUSION, NORMAL VALVES, NORMAL LEFT VENTRICLE SIZE AND CONTRACTILITY--NO THROMBUS M-MODE: MV: NORMAL AV: NORMAL TV: NORMAL PV: CHAMBER SIZE: ENLARGED LEFT ATRIAL CAVITY WALL MOTION:NORMAL PERICARDIUM: MILD PERICARDIAL EFFUSION INTERPRETATION: 1.ENLARGED LEFT ATRIAL CAVITY (MILD) 2. MILD / SMALL PERICARDIAL EFFUSION 3. NORMAL VALVES 4. NORMAL LEFT VENTRICLE SIZE AND CONTRACTILITY COPY TO DR. STEELE Education Provided to Patient and Family: Per nursing staff Follow-ups: Dr. Steele one week, I discussed the case with him. Discharge Disposition: Home Hospital Course: Admitted with TIA, resolved. Work-up neg. Main risk factor is smoking. Mild UTI, likely chronic because of urostomy. Urine culture pending. Plan: D/C on ASA and plavix. Macrobid. Strongly encouraged to stop smoking. This d/c done with a [id number] exam and entire process was 40 minutes.
[2021-11-20] MEDS ORDERED: ROCEPHIN 1 GM/50 ML D5W 1 GM/50 ML BAG IV SCH (21:00)
== END 2021-11-20 17:24 | disposition home or self-care (01) ==
LOC: ED 22:33 → MEDSURG A 11-20 00:10 → INTOOBSV 11-20 00:10 → MEDSURG A 11-20 00:40
PROVIDERS: ADMIT Internal Medicine Geriatric Medicine; ATTEND Emergency Medicine
DX: N39.0 Urinary tract infection, site not specified; Z51.81 Encounter for therapeutic drug level monitoring; I51.7 Cardiomegaly; Z79.899 Other long term (current) drug therapy; G45.9 Transient cerebral ischemic attack, unspecified; Z20.822 Contact with and (suspected) exposure to COVID-19; R82.79 Other abnormal findings on microbiological examination of urine; Z93.6 Other artificial openings of urinary tract status; F17.210 Nicotine dependence, cigarettes, uncomplicated